=== PATIENT | female | born 1960 | race Caucasian/White ===

== ENCOUNTER 2019-09-21 08:35 | Day surgery (SDC) | payer BC, OTHER ==
[2019-09-01 18:10] VITALS: BMI 29.2
--- NOTE | 2019-09-21 07:38 | OP ---
Operative Note - Note: Operative Date: 09/21/19 Pre-Operative Diagnosis: Right medial meniscus tear Operation: Right knee arthroscopy with partial lateral meniscectomy and medial femoral condyle microfracture Post-Operative Diagnosis: Same as Pre-op Surgeon: Jhonny Isaacs Landing Man: Brenda Billings Anesthesia: General Operative Report Dictated: Yes
[2019-09-21] MEDS ORDERED: BUPIVACAINE HCL 0.25% 125 MG/50 ML VIAL ONE (10:34)
[2019-09-21] MEDS ORDERED: EPINEPHrine/PF 1 MG/1 ML (1:1,000) AMPULE ONE ×3 (10:34→10:50)
[2019-09-21] MEDS ORDERED: MIDAZOLAM HCL 2 MG/2 ML SINGLE DOSE VIAL ONE (11:18)
[2019-09-21] MEDS ORDERED: PROPOFOL 20 ML ONE (11:18)
[2019-09-21] MEDS ORDERED: ceFAZolin SODIUM 1 GM VIAL ONE (11:20)
[2019-09-21] MEDS ORDERED: LIDOCAINE HCL/PF 2% SDV 5ML VIAL ONE (11:20)
[2019-09-21] MEDS ORDERED: DEXAMETHASONE SOD PHOSPHATE 4 MG/1 ML VIAL ONE (11:22)
[2019-09-21] MEDS ORDERED: KETOROLAC TROMETHAMINE 30 MG/1 ML VIAL ONE (11:22)
[2019-09-21] MEDS ORDERED: ONDANSETRON 4 MG/2 ML VIAL ONE ×2 (11:22→13:09)
[2019-09-21] MEDS ORDERED: BUPIVACAINE HCL/PF 0.25% (2.5MG/ML) 10 ML VIAL IJ ONE (12:31)
[2019-09-21] MEDS ORDERED: PROMETHAZINE HCL 25 MG/1 ML VIAL IVPUSH PRN (13:28)
[2019-09-21] MEDS ORDERED: oxyCODONE HCL 5 MG TABLET PO PRN ×2 (13:28)
[2019-09-21] MEDS ORDERED: ONDANSETRON 4 MG/2 ML VIAL IVPUSH PRN (13:28)
[2019-09-21] MEDS ORDERED: fentaNYL CITRATE/PF 1,000 MCG/20 ML AMPUL IVPUSH PRN (14:06)
[2019-09-21] MEDS ORDERED: oxyCODONE HCL 5 MG TABLET ONE (14:44)
[2019-09-21] MEDS ORDERED: PROMETHAZINE HCL 25 MG/1 ML VIAL ONE (16:33)
[2019-09-21 17:38] VITALS: BP 128/64; PULSE 62; TEMP 97.5
--- NOTE | 2019-09-21 18:05 | OP ---
DATE OF OPERATION: 09/21/2019 PREOPERATIVE DIAGNOSIS: Right knee lateral meniscus tear. 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 PROCEDURE: Right knee arthroscopy with partial lateral meniscectomy and medial femoral condyle microfracture. SURGEON: Jhonny Isaacs MD ASSISTANT BOILER OPERATOR: BREANA Bennett, whose skillful assistance was necessary for the safe and timely performance of this procedure. ANESTHESIA: General. POSTOPERATIVE CONDITION: Stable. COMPLICATIONS: None. INDICATIONS: This is a pleasant, 59-year-old female who was having right knee pain. MRI demonstrated meniscal tear. Treatment options were discussed including nonoperative versus operative management. Operative risks were reviewed in detail including bleeding, infection, neurovascular injury, need for further surgery, postoperative pain and stiffness, progression of osteoarthritis. We discussed medical risks such heart attack, stroke, DVT, PE, and . I addressed the use of perioperative antibiotic and DVT prophylaxis. I addressed all the patient's questions and concerns. She voiced understanding and elected to proceed. DESCRIPTION OF PROCEDURE: The patient was brought to the operating room where general anesthesia was administered. The right lower extremity was then prepped and draped in the usual sterile fashion. A preoperative dose of antibiotics was given, and the usual timeout procedure was performed. The bony landmarks were then marked out. The portal sites were marked. They were injected subcutaneously with 0.25% Marcaine. An 11 blade was now used to establish a lateral portal. The arthroscope was passed into the patellofemoral joint. Examination of the patellofemoral joint demonstrated moderate, diffuse, partial-grade chondral loss along the mid portion of the patella. Trochlea had only some mild streak wear. Passing the arthroscope into the notch demonstrated intact ACL and PCL. A medial portal was now established under spinal needle localization. Examination of the medial compartment demonstrated mild superficial articular wear along the tibial surface. There were no meniscal tears noted. Along the lateral aspect of the medial femoral condyle, there was extensive cartilage delamination, partial-thickness with a large loose flap identified. Attention was now turned to the lateral compartment. Here, a tear was identified in the posterior horn/body junction of the lateral meniscus. There was minimal articular wear noted on the femoral and tibial surfaces. The meniscus was now debrided utilizing the mechanical shaver. Attention was now turned back medially. Given the instability of the flaps, it was decided to perform a microfracture technique in order to encourage healing of the loose articular fragments. In the femoral notch, the lateral wall was debrided anterior to ACL. A 0.062 K-wire was used to place multiple holes through here to allow extravasation of marrow into the joint. In addition, under the unstable flap, multiple drill holes were placed with a 0.062 K-wire, again to allow marrow to extravasate and heal down the articular surface. At this point, the excess fluid was withdrawn from the joint. The portals were sutured using 3-0 nylon. The patient was then extubated, transferred to recovery room in stable condition. Fran [id number]
== END 2019-09-21 17:15 | disposition home or self-care (01) ==
LOC: FASU 08:35
PROVIDERS: ATTEND Orthopaedic Surgery Sports Medicine
PROC: 0SQD4ZZ Repair Left Knee Joint, Percutaneous Endoscopic Approach (ICD-10-PCS; 2019-09-21)
PROC: 0SBC4ZZ Excision of Right Knee Joint, Percutaneous Endoscopic Approach (ICD-10-PCS; principal; 2019-09-21 10:00)
DX: S83.281A Other tear of lateral meniscus, current injury, right knee, initial encounter (principal); M22.41 Chondromalacia patellae, right knee; M94.261 Chondromalacia, right knee; X58.XXXA Exposure to other specified factors, initial encounter; Y93.9 Activity, unspecified; Y92.9 Unspecified place or not applicable
CPT/HCPCS: 94760

== ENCOUNTER 2022-01-15 06:14 | Day surgery (SDC) | payer BC, OTHER ==
[2022-01-12 12:05] VITALS: BMI 26.9
[2022-01-15] MEDS ORDERED: BUPIVACAINE HCL/PF 0.25% (2.5MG/ML) 10 ML VIAL ONE (07:26)
[2022-01-15] MEDS ORDERED: DEXAMETHASONE SOD PHOSPHATE 4 MG/1 ML VIAL ONE ×2 (07:36→08:36)
[2022-01-15] MEDS ORDERED: ONDANSETRON 4 MG/2 ML VIAL ONE ×2 (07:36→08:36)
[2022-01-15] MEDS ORDERED: PROPOFOL 20 ML ONE (07:36)
[2022-01-15] MEDS ORDERED: SUCCINYLCHOLINE CHLORIDE 200 MG/10 ML SYRINGE ONE (07:36)
[2022-01-15] MEDS ORDERED: MIDAZOLAM HCL 2 MG/2 ML SINGLE DOSE VIAL ONE (07:36)
[2022-01-15] MEDS ORDERED: KETOROLAC TROMETHAMINE 30 MG/1 ML VIAL ONE (07:37)
[2022-01-15] MEDS ORDERED: ceFAZolin SODIUM 1 GM VIAL ONE (08:01)
[2022-01-15] MEDS ORDERED: BUPIVACAINE HCL/PF 0.25% (2.5MG/ML) 10 ML VIAL IJ ONE (08:12)
[2022-01-15] MEDS ORDERED: FENTANYL CITRATE/PF 50 MCG/ML VIAL ONE ×3 (09:04→10:03)
[2022-01-15] MEDS ORDERED: ONDANSETRON 4 MG/2 ML VIAL IVPUSH PRN (09:10)
[2022-01-15] MEDS ORDERED: oxyCODONE HCL 5 MG TABLET PO PRN ×2 (09:10)
[2022-01-15] MEDS ORDERED: LACTATED RINGERS SOLUTION 1,000 ML IV SCH (09:15)
[2022-01-15] MEDS ORDERED: oxyCODONE HCL 5 MG TABLET ONE (10:42)
[2022-01-15] MEDS ORDERED: ONDANSETRON *ODT* 4 MG TABLET ONE (12:02)
[2022-01-15] MEDS ORDERED: ONDANSETRON *ODT* 4 MG TABLET SL ONE (13:00)
[2022-01-15 13:56] VITALS: TEMP 97.6
[2022-01-15 14:07] VITALS: BP 116/71; PULSE 72
== END 2022-01-15 13:45 | disposition home or self-care (01) ==
LOC: FASU 06:14
PROVIDERS: ATTEND Orthopaedic Surgery Sports Medicine
PROC: 0SQD4ZZ Repair Left Knee Joint, Percutaneous Endoscopic Approach (ICD-10-PCS; 2022-01-15)
PROC: 0SBD4ZZ Excision of Left Knee Joint, Percutaneous Endoscopic Approach (ICD-10-PCS; 2022-01-15)
PROC: 0SBD4ZZ Excision of Left Knee Joint, Percutaneous Endoscopic Approach (ICD-10-PCS; principal; 2022-01-15 08:12)
DX: M67.52 Plica syndrome, left knee (principal); M23.252 Derangement of posterior horn of lateral meniscus due to old tear or injury, left knee
CPT/HCPCS: 94760; 97116-GP; Q0162